=== PATIENT | male | born 1985 | race Caucasian/White ===

== ENCOUNTER 2020-07-08 06:52 | Outpatient (RCR) | payer OTHER ==
[2020-07-15] MEDS ORDERED: CEPH500C PO (09:13)
[2020-07-15] MEDS ORDERED: ACHD5005 PO (09:13)
== END 2020-07-12 08:22 | disposition home or self-care (01) ==
LOC: PREOP 06:52 → EDSTATUS 13:00 → PREOP 07-12 08:22
PROVIDERS: ATTEND Podiatrist Foot & Ankle Surgery
DX: Z01.818 Encounter for other preprocedural examination (principal)

== ENCOUNTER 2020-07-15 06:35 | Day surgery (SDC) | payer OTHER ==
[2020-07-15] VITALS (9 sets, daily range): BP systolic 94–124; BP diastolic 46–82
[~2020-07-15] VITALS: Ht 182.9 cm; Wt 90.8 kg
[2020-07-15] MEDS ORDERED: LACTATED RINGERS 1,000 ML IV PRN (06:45)
[2020-07-15] MEDS ORDERED: ceFAZolin INJECTION 1,000 MG in WATER (STERILE) FOR INJECTION 10 ML IV ONE (06:45)
[2020-07-15] MEDS ORDERED: LIDOCAINE 1% INJ 20 ML 20 ML VIAL ONE (07:09)
[2020-07-15] MEDS ORDERED: BUPIVACAINE 0.5% 30 ML (SENSORCAINE) VIAL ONE (07:09)
[2020-07-15] MEDS ORDERED: proPOfol 200 MG/20 ML (DIPRIVAN) VIAL IV ONE (07:24)
[2020-07-15] MEDS ORDERED: SEVOFLURANE (ULTANE) 15 ML INHAL SOLN ONE ×3 (07:24→08:50)
[2020-07-15] MEDS ORDERED: ONDANSETRON 4 MG/2 ML (SDV) Z0FRAN ONE (07:24)
[2020-07-15] MEDS ORDERED: LIDOCAINE PF 2% 5 ML (XYLOCAINE) VIAL ONE (07:24)
[2020-07-15] MEDS ORDERED: MIDAZOLAM 2 MG/2 ML (VERSED) VIAL ONE (07:25)
[2020-07-15] MEDS ORDERED: fentaNYL INJ 100 MCG/2 ML AMP ONE (07:25)
--- NOTE | 2020-07-15 07:43 | Progress Note-Pre Operative ---
Pre-Operative Progress Note H&P Reviewed The H&P was reviewed, patient examined and no changes noted. Date Seen by Provider: Jul 15, 2020 Time Seen by Provider: 07:42 Date H&P Reviewed: Jul 15, 2020 Time H&P Reviewed: 07:42 Pre-Operative Diagnosis: Hallux Malleus, right TASNEEM MURILLO DPM Jul 15, 2020 07:43
--- NOTE | 2020-07-15 09:06 | Anesthesia-General Post-Op ---
General Patient Condition Mental Status/LOC: Same as Preop Cardiovascular: Satisfactory Nausea/Vomiting: Absent Respiratory: Satisfactory Pain: Controlled Complications: Absent Post Op Complications Complications None Follow Up Care/Instructions Patient Instructions None needed. Anesthesia/Patient Condition Patient Condition Patient is doing well, no complaints, stable vital signs, no apparent adverse anesthesia problems. No complications reported per nursing. KARTHIKEYAN WADDELL CRNA Jul 15, 2020 09:06
--- NOTE | 2020-07-15 09:10 | Progress Note-Post Operative ---
Post-Operative Progess Note Surgeon (s)/Farm Management Teacher (s) Surgeon TASNEEM MURILLO DPM Farm Management Teacher: none Pre-Operative Diagnosis Hallux Malleus, right Post-Operative Diagnosis Same Procedure & Operative Findings Date of Procedure 07/15/20 Procedure Performed/Findings Arthrodesis of right hallux interphalangeal joint Anesthesia Type General Estimated Blood Loss Estimated blood loss (mL): minimal Specimens/Packing Specimens Removed none TASNEEM MURILLO DPM Jul 15, 2020 09:10
[2020-07-15] MEDS ORDERED: CEPH500C PO (09:13)
[2020-07-15] MEDS ORDERED: ACHD5005 PO (09:13)
[2020-07-15] MEDS ORDERED: morphine INJ 10 MG/ML 1ML (SYR OR VIAL) IVP ONE (09:15)
[2020-07-15] MEDS ORDERED: LACTATED RINGERS 1,000 ML IV SCH (09:15)
[2020-07-15] MEDS ORDERED: ONDANSETRON 4 MG/2 ML (SDV) Z0FRAN IVP PRN (09:15)
[2020-07-15] MEDS ORDERED: MEPERIDINE (DEMEROL) INJ 50 MG/ML IVP ONE (09:15)
[2020-07-15] MEDS ORDERED: HYDROcodone/APAP 5 MG/325 MG (LORTAB) TAB PO PRN (09:15)
--- NOTE | 2020-07-15 09:30 | Diagnostic Imaging Report ---
INDICATION: Fusion of the great toe. COMPARISON: None. TOTAL FLUOROSCOPY TIME: 4.9 seconds. TOTAL NUMBER OF FLUOROSCOPIC IMAGES SAVED: Two. FINDINGS: Multiple intraoperative image intensifier views of the right great toe were obtained. The images provided show a partially threaded screw traversing the proximal and distal phalanges of the great toe. Please note, the interpreting radiologist was not present during the procedure. IMPRESSION: Fluoroscopic guidance was provided intraoperatively as above. Dictated by: Dictated on workstation # [id number]
--- NOTE | 2020-07-15 09:36 | Diagnostic Imaging Report ---
INDICATION: Postop foot. COMPARISON: Earlier same day FINDINGS: 2 radiographic views of the right foot were obtained and demonstrate interval placement of partially threaded cannulated screw through the proximal and distal phalanges of the great toe. Osteotomy defects are also noted at the articular surfaces of the interphalangeal joint space. No unexpected radiopaque foreign bodies are seen. No acute fracture or dislocation is identified. IMPRESSION:. Postsurgical changes to the great toe as described above. No unexpected radiopaque foreign bodies. Dictated by: Dictated on workstation # [id number]
--- NOTE | 2020-07-15 10:31 | Physical Therapy Progress Note ---
Therapy Progress Note PT visited with patient and he reports he has used crutches and feel comfortable with use. Reviewed step training verbally with patient describing use appropriately. No PT indicated. Patient is PWB right foot per RN report. 1 visit (102) PRATEEK RAMACHANDRAN PT Jul 15, 2020 10:31
--- NOTE | 2020-07-15 18:16 | OPERATIVE REPORT ---
DATE OF SERVICE: 07/15/2020 SURGEON: Karuna Murillo DPM. PREOPERATIVE DIAGNOSIS: Hallux malleus, right. POSTOPERATIVE DIAGNOSIS: Hallux malleus, right. PROCEDURE PERFORMED: Arthrodesis of the interphalangeal joint, right hallux. WOUND CLASS: Clean. ANESTHESIA: General. HEMOSTASIS: Pneumatic thigh tourniquet at 250 mmHg. INDICATIONS FOR PROCEDURE: This 34-year-old male presents complaining of a painful right great toe joint. Because of the previous injury and the shape of the toe, the digit is rubbing in his shoes and causing all kinds of discomfort with ambulation and shoe gear. Conservative therapy is met with unsatisfactory results and the patient is agreeable to surgical intervention after risks and complications were discussed at length. No guarantees were extended to the patient and he is willing to proceed. DESCRIPTION OF PROCEDURE: The patient was brought back to the operating table and placed in a secure supine position. The general anesthetic was then induced. Appropriate timeout was performed. Pneumatic thigh tourniquet was placed on the right lower extremity over several layers of padding. The right foot was then prepped and draped in a normal sterile manner. Preoperative injection consisted of 10 mL of 1:1 mixture of 1% Xylocaine, 0.5% Marcaine injected in a Kennedy block. The right foot was again elevated and allowed to exsanguinate after which the tourniquet was inflated to 250 mmHg. Attention was then directed to the dorsal aspect of the right hallux, where a longitudinal incision was created approximately 3 cm along the proximal phalanx across the interphalangeal joint. A second incision from medial to lateral was made approximately 2 cm. This exposed the interphalangeal joint area, where a transverse tenotomy was performed to the extensor hallucis tendon. The medial and lateral collateral ligaments to the interphalangeal joint were also released. There is a considerable amount of adaptive changes to the medial portion of the distal phalanx at the interphalangeal joint. Utilizing a power sagittal saw, the head of the proximal phalanx was cut perpendicular to the long axis of the proximal phalanx. Same power sagittal saw was utilized to cut the articular cartilage from the base of the distal phalanx. Next, fenestration was performed with a 0.045 K-wire to the base of the proximal phalanx and head of the proximal phalanx. Utilizing a 0.045 smooth K-wire, the hallux interphalangeal joint was aligned and confirmed with C-arm for appropriate alignment. The K-wire was sticking at the end of the toe, where a secondary incision was created. Next, utilizing a Trilliant 4.0 cannulated screw set and utilizing standard technique, which included countersinking as well as predrilling of the distal phalanx. A 46 mm 4.0 cannulated screw was introduced through the distal incision at the hyponychium extending through the distal phalanx into the proximal phalanx securing the arthrodesis in a rectus alignment. This was confirmed with intraoperative C-arm, both in the AP and lateral views. The wound was flushed with copious amounts of normal saline throughout the procedure. Closure was then performed in layers. The extensor tendon was repaired with 3-0 Vicryl. Superficial closure was performed with 4-0 Vicryl, skin closure with 4-0 Prolene in a horizontal mattress type stitch to both the dorsal and the hyponychium wounds. The tourniquet was released noting appropriate cap refill time to all digits of the right foot. Postoperative injection consisted of additional 5 mL of 1:1 mixture of 1% Xylocaine, 0.5% Marcaine injected in a digital block to the right hallux. Postoperative dressing consisted of Betadine soaked Adaptic, sterile 4 x 4, sterile Kerlix all secured with Coban wrap. The patient tolerated the anesthesia and procedure well, was transported from the operating room to the recovery area with vital signs stable and vascular status intact to all digits of the right foot. The patient is to follow up in my office in 10 days' period of time or sooner if necessary. He was given a prescription for Keflex as well as Vicodin. He is to be partial weightbearing with heel contact only on the right side. Job ID: [id number] DocumentID: [id number] Dictated Date: 07/15/2020 09:19:53 [employer] Date: 07/15/2020 18:16:08 Dictated By: KARUNA MURILLO DPM
== END 2020-07-15 10:45 | disposition home or self-care (01) ==
LOC: SDC 06:35
PROVIDERS: ATTEND Podiatrist Foot & Ankle Surgery
DX: M20.31 Hallux varus (acquired), right foot (principal); Z20.822 Contact with and (suspected) exposure to COVID-19
CPT/HCPCS: 28755; 73620; 76000; 87081; C1713 ×3